=== PATIENT | female | born 1960 | race Caucasian/White ===

== ENCOUNTER 2018-02-26 09:39 | Emergency (ER) | payer BC ==
[2018-02-26] MEDS ORDERED: Sodium Chloride 0.9% 10 ML Syringe FLUSH PRN (10:26)
[2018-02-26] MEDS ORDERED: Ketorolac 30 MG/ML SDV IVPUSH ONE (10:28)
[2018-02-26] MEDS ORDERED: Ondansetron 4 MG/2 ML SDV IVPUSH ONE (10:28)
[2018-02-26] MEDS ORDERED: Lactated Ringers 1,000 ML IV SCH (10:30)
--- NOTE | 2018-02-26 10:30 | EDM.PDOC ---
ED HPI GENERAL MEDICAL PROBLEM - General Chief Complaint: Genitourinary Problem Stated Complaint: PAIN ON LEFT BACKSIDE- POSSIBLE KIDNEY STONE Time Seen by Provider: 02/26/18 10:23 Source of Information: Reports: Patient, Family, RN Notes Reviewed History Limitations: Reports: No Limitations - History of Present Illness INITIAL COMMENTS - FREE TEXT/NARRATIVE: 57-year-old female presents to the emergency department today complaint of left- sided flank pain, she states it came on suddenly this morning comes in waves is very intense relax does have nausea and vomiting no shortness of breath or chest pain has never had a kidney stone in the past no fevers Left Flank Pain Score (Numeric/FACES): 9 - Related Data Allergies Allergy/AdvReac Type Severity Reaction Status Date / Time erythromycin base Allergy Hives Verified 02/26/18 10:07 [From Erythrocin] Penicillins Allergy Hives Verified 02/26/18 10:07 Sulfa (Sulfonamide Allergy Hives Verified 02/26/18 10:07 Antibiotics) Home Meds: Home Meds Metoprolol Tartrate 12.5 mg PO DAILY 02/26/18 [History] Past Medical History Neurological History: Reports: Migraines Oncologic (Cancer) History: Reports: Malignant Melanoma Dermatologic History: Reports: Melanoma Social & Family History - Tobacco Use Smoking Status *Q: Never Smoker - Caffeine Use Caffeine Use: Reports: Coffee - Recreational Drug Use Recreational Drug Use: No ED ROS GENERAL - Review of Systems Review Of Systems: See Below Constitutional: Reports: No Symptoms HEENT: Reports: No Symptoms Respiratory: Reports: No Symptoms Cardiovascular: Reports: No Symptoms GI/Abdominal: Reports: Nausea, Vomiting : Reports: Flank Pain ED EXAM, RENAL/ - Physical Exam Exam: See Below Exam Limited By: No Limitations General Appearance: Alert, Mild Distress Eye Exam: Bilateral Eye: Normal Inspection Head: Atraumatic, Normocephalic Neck: Normal Inspection, Supple, Non-Tender, Full Range of Motion Respiratory/Chest: No Respiratory Distress, Lungs Clear, Normal Breath Sounds, No Accessory Muscle Use Cardiovascular: Regular Rate, Rhythm, No Murmur GI/Abdominal: Soft, Non-Tender Back Exam: Normal Inspection, Full Range of Motion, CVA Tenderness (L). No: CVA Tenderness (R) Course - Vital Signs Last Recorded V/S: Last Vital Signs Temp 95.4 F 02/26/18 09:54 Pulse 61 02/26/18 09:54 Resp 20 02/26/18 09:54 BP 167/101 H 02/26/18 09:54 Pulse Ox 100 02/26/18 09:54 - Orders/Labs/Meds Orders: Active Orders 24 hr Category Date Time Status Peripheral IV Care [RC] . DIRECTED Care 02/26/18 10:26 Active UA W/MICROSCOPIC [URIN] Urgent Lab 02/26/18 10:26 Ordered Lactated Ringers [Ringers, Lactated] 1,000 ml Med 02/26/18 10:30 Active IV ASDIRECTED Sodium Chloride 0.9% [Saline Flush] Med 02/26/18 10:26 Active 10 ml FLUSH ASDIRECTED PRN Peripheral IV Insertion Adult [OM.PC] Urgent Oth 02/26/18 10:26 Ordered Medication Orders Lactated Ringer's (Ringers, Lactated) 1,000 mls @ 999 mls/hr IV ASDIRECTED LEVI Last Admin: 02/26/18 10:46 Dose: 999 mls/hr Sodium Chloride (Saline Flush) 10 ml FLUSH ASDIRECTED PRN PRN Reason: Keep Vein Open Last Admin: 02/26/18 12:10 Dose: 10 ml Labs: Laboratory Tests 02/26/18 02/26/18 Range/Units 10:26 10:39 WBC 12.7 H (4.5-11.0) K/uL RBC 5.23 (3.30-5.50) M/uL Hgb 14.9 (12.0-15.0) g/dL Hct 45.6 (36.0-48.0) % MCV 87 (80-98) fL MCH 29 (27-31) pg MCHC 33 (32-36) % Plt Count 192 (150-400) K/uL Neut % (Auto) 80 H (36-66) % Lymph % (Auto) 14 L (24-44) % [place] % (Auto) 6 (2-6) % Eos % (Auto) 0 L (2-4) % Baso % (Auto) 0 (0-1) % Sodium (140-148) mmol/L Potassium (3.6-5.2) mmol/L Chloride (100-108) mmol/L Carbon Dioxide (21-32) mmol/L Anion Gap (5.0-14.0) mmol/L BUN (7-18) mg/dL Creatinine (0.6-1.0) mg/dL Est Cr Clr Drug Dosing mL/min Estimated GFR (MDRD) (>60) Glucose (74-106) mg/dL Calcium (8.5-10.1) mg/dL Meds: Medications Generic Name Dose Route Start Last Admin Trade Name Freq PRN Reason Stop Dose Admin Lactated Ringer's 1,000 mls @ 999 mls/hr 02/26/18 10:30 02/26/18 10:46 Ringers, Lactated IV 999 mls/hr ASDIRECTED LEVI Administration Sodium Chloride 10 ml 02/26/18 10:26 02/26/18 12:10 Saline Flush FLUSH 10 ml ASDIRECTED PRN Administration Keep Vein Open Discontinued Medications Generic Name Dose Route Start Last Admin Trade Name Freq PRN Reason Stop Dose Admin Fentanyl 50 mcg 02/26/18 12:00 02/26/18 12:11 Sublimaze IVPUSH 02/26/18 12:01 50 mcg ONETIME ONE Administration Ketorolac Tromethamine 30 mg 02/26/18 10:28 02/26/18 10:49 Toradol IVPUSH 02/26/18 10:29 30 mg ONETIME ONE Administration Ondansetron HCl 4 mg 02/26/18 10:28 02/26/18 10:48 Zofran IVPUSH 02/26/18 10:29 4 mg ONETIME ONE Administration Prochlorperazine Edisylate 5 mg 02/26/18 12:00 02/26/18 12:10 Compazine IVPUSH 02/26/18 12:01 5 mg ONETIME ONE Administration Departure - Departure Time of Disposition: 12:59 Disposition: Home, Self-Care 01 Condition: Good Clinical Impression: Kidney stone - Discharge Information Referrals: PCP,None [Primary Care Provider] - Forms: ED Department Discharge Additional Instructions: use hydrocodone as needed for pain control, use Zofran as needed for nausea and vomiting symptoms use the Flomax to help facilitate passage of the stone, please follow-up with urology upon return home, call return to the emergency department worsening of symptoms - My Orders Last 24 Hours: My Active Orders 02/26/18 10:26 Peripheral IV Care [RC] . DIRECTED UA W/MICROSCOPIC [URIN] Urgent Sodium Chloride 0.9% [Saline Flush] 10 ml FLUSH ASDIRECTED PRN Peripheral IV Insertion Adult [OM.PC] Urgent 02/26/18 10:30 Lactated Ringers [Ringers, Lactated] 1,000 ml IV ASDIRECTED - Assessment/Plan Last 24 Hours: My Active Orders 02/26/18 10:26 Peripheral IV Care [RC] . DIRECTED UA W/MICROSCOPIC [URIN] Urgent Sodium Chloride 0.9% [Saline Flush] 10 ml FLUSH ASDIRECTED PRN Peripheral IV Insertion Adult [OM.PC] Urgent 02/26/18 10:30 Lactated Ringers [Ringers, Lactated] 1,000 ml IV ASDIRECTED Plan: Assessment Acuity = acute Site and laterality = left-sided 6 x 3 mm stone at the UPJ Etiology = unknown etiology Manifestations = nausea, flank pain Location of injury = Home Lab values = CBC, CMP unremarkable, CT scan described stone above Plan Discussed options with her and the variability the stone passing she elected to try watchful waiting and will return home on Friday. Hydrocodone 5/325 one tablet by mouth 3 times a day when necessary total #20 provided for pain control , Zofran 4 mg ODT 1 tab by mouth 3 times a day when necessary total #10, prescription written for Flomax 0.4 mg 1 tablet daily total #20. She will follow -up with urology upon return home This note was dictated using [employer] voice recognition software please call with any questions on syntax or grammar.
--- NOTE | 2018-02-26 11:35 | CT ---
Abdomen Pelvis wo Cont CLINICAL HISTORY: Left flank pain COMPARISON: None. TECHNIQUE: Axial tomographic images are obtained from the dome of the diaphragm to the pubic symphysi s without IV contrast enhancement. No oral contrast was used. Auto dosage reduction and iterative rec onstruction techniques employed. FINDINGS: The left kidney is hydronephrotic. The there is a 3 x 6 mm calculus in the proximal left ur eter just below the UPJ. The mid to distal ureter has a normal course and contour. Bladder has normal appearance. The lung bases are clear. The liver shows no mass or biliary dilatation. The gallbladder is unremarka ble. The spleen has a normal size and shape. There is a small splenule. The pancreas shows no mass or inflammatory change. The adrenal glands appear normal bilaterally. The aorta has a normal course and contour. There is no suspicious retroperitoneal adenopathy. Abdominal pelvic fat planes are well dem arcated IMPRESSION: 3 x 6 mm obstructing calculus in the proximal left ureter with left hydronephrosis
[2018-02-26] MEDS ORDERED: fentaNYL 100 MCG/2 ML SDV IVPUSH ONE ×2 (12:00→13:08)
[2018-02-26] MEDS ORDERED: Prochlorperazine 10 MG/2 ML SDV IVPUSH ONE (12:00)
== END 2018-02-26 13:34 | disposition home or self-care (01) ==
LOC: JP.ED 09:39
DX: N13.2 Hydronephrosis with renal and ureteral calculous obstruction (principal); Z88.1 Allergy status to other antibiotic agents; Z88.0 Allergy status to penicillin; Z88.2 Allergy status to sulfonamides; Z79.899 Other long term (current) drug therapy
CPT/HCPCS: 36415; 74176; 80048; 85025; 96361; 96372; 96374; 96375; 96376; 99284; J0780; J1885; J2405; J3010; J7050; J7120

== ENCOUNTER 2018-02-27 09:27 | Emergency (ER) | payer BC ==
[2018-02-27] MEDS ORDERED: Sodium Chloride 0.9% 1,000 ML IV SCH ×2 (10:00→10:30)
--- NOTE | 2018-02-27 10:07 | EDM.PDOC ---
ED HPI GENERAL MEDICAL PROBLEM - General Chief Complaint: Genitourinary Problem Stated Complaint: POSSIBLE KIDNEY STONE Time Seen by Provider: 02/27/18 10:07 Source of Information: Reports: Patient History Limitations: Reports: No Limitations - History of Present Illness INITIAL COMMENTS - FREE TEXT/NARRATIVE: pt was seen yesterday and was found to have a 6mm stone high in the left ureter. She has not had alot of pain since discharge until early this am. She Had marked shaking chills early this am. She was found to have a obstructing stone on the left . She has left hydroneprous. Onset: Today, Other ( shaking chills started early this am. ) Duration: Hour(s): Location: Reports: Abdomen Associated Symptoms: Reports: Diaphoresis, Fever/Chills Left Abdominal Pain Score (Numeric/FACES): 5 - Related Data Allergies Allergy/AdvReac Type Severity Reaction Status Date / Time erythromycin base Allergy Hives Verified 02/27/18 09:49 [From Erythrocin] Penicillins Allergy Hives Verified 02/27/18 09:49 Sulfa (Sulfonamide Allergy Hives Verified 02/27/18 09:49 Antibiotics) Home Meds: Home Meds Metoprolol Tartrate 12.5 mg PO DAILY 02/26/18 [History] Acetaminophen/HYDROcodone [Pana 325-5 MG] 1 tab PO Q4HR 02/27/18 [History] Tamsulosin [Flomax] 1 tab PO DAILY 02/27/18 [History] Past Medical History Neurological History: Reports: Migraines Oncologic (Cancer) History: Reports: Malignant Melanoma Dermatologic History: Reports: Melanoma Social & Family History - Tobacco Use Smoking Status *Q: Never Smoker - Caffeine Use Caffeine Use: Reports: Coffee - Recreational Drug Use Recreational Drug Use: No ED ROS GENERAL - Review of Systems Review Of Systems: See Below Constitutional: Reports: Fever, Chills, Malaise HEENT: Reports: No Symptoms Respiratory: Reports: No Symptoms Cardiovascular: Reports: No Symptoms Endocrine: Reports: No Symptoms GI/Abdominal: Reports: No Symptoms : Reports: Flank Pain Musculoskeletal: Reports: No Symptoms Skin: Reports: No Symptoms ED EXAM, GI/ABD - Physical Exam Exam: See Below Text/Narrative:: t arrived with a history of shaking chills. She has a known obstructing stone in the left ureter. She has definite hydronephous. p Exam Limited By: No Limitations General Appearance: Alert, Mild Distress Ears: Normal TMs Nose: Normal Inspection Throat/Mouth: Normal Inspection Head: Atraumatic Neck: Normal Inspection Respiratory/Chest: No Respiratory Distress Cardiovascular: Regular Rate, Rhythm GI/Abdominal Exam: Other (left flank pain) Rectal (Female) Exam: Deferred Back Exam: CVA Tenderness (L) Extremities: Normal Inspection Neurological: Alert, Oriented, Normal Cognition Psychiatric: Normal Affect Course - Vital Signs Last Recorded V/S: Last Vital Signs Temp 37.9 C 02/27/18 10:41 Pulse 102 H 02/27/18 10:41 Resp 14 02/27/18 10:41 BP 117/71 02/27/18 10:41 Pulse Ox 96 02/27/18 10:41 - Orders/Labs/Meds Orders: Active Orders 24 hr Category Date Time Status CULTURE BLOOD [BC] Urgent Lab 02/27/18 10:20 Received CULTURE BLOOD [BC] Urgent Lab 02/27/18 10:25 Received CULTURE URINE [RM] Stat Lab 02/27/18 10:23 Received UA W/MICROSCOPIC [URIN] Urgent Lab 02/27/18 10:06 Ordered Levofloxacin/Dextrose 5%-Water [Levaquin in D5W 500 MG/ Med 02/27/18 10:28 Active 100 ML] 500 mg Premix Bag 1 bag IV ONETIME Sodium Chloride 0.9% [Normal Saline] 1,000 ml Med 02/27/18 10:00 Active IV ASDIRECTED Sodium Chloride 0.9% [Normal Saline] 1,000 ml Med 02/27/18 10:30 Active IV ASDIRECTED Blood Culture x2 Reflex Set [OM.PC] Urgent Oth 02/27/18 10:06 Ordered Medication Orders Sodium Chloride (Normal Saline) 1,000 mls @ 999 mls/hr IV ASDIRECTED LEVI Last Admin: 02/27/18 10:08 Dose: 999 mls/hr Sodium Chloride (Normal Saline) 1,000 mls @ 999 mls/hr IV ASDIRECTED LEVI Levofloxacin/Dextrose 500 mg/ (Premix) 100 mls @ 100 mls/hr IV ONETIME ONE Stop: 02/27/18 11:27 Last Admin: 02/27/18 10:38 Dose: 100 mls/hr Labs: Laboratory Tests 02/27/18 02/27/1818 Range/Units 10:06 10:06 10:06 WBC 5.7 (4.5-11.0) K/uL RBC 4.63 (3.30-5.50) M/uL Hgb 13.0 (12.0-15.0) g/dL Hct 40.2 (36.0-48.0) % MCV 87 (80-98) fL MCH 28 (27-31) pg MCHC 32 (32-36) % Plt Count 119 L (150-400) K/uL Neut % (Auto) 95 H (36-66) % Lymph % (Auto) 4 L (24-44) % [place] % (Auto) 1 L (2-6) % Eos % (Auto) 0 L (2-4) % Baso % (Auto) 0 (0-1) % Sodium 132 L (140-148) mmol/L Potassium 3.7 (3.6-5.2) mmol/L Chloride 101 (100-108) mmol/L Carbon Dioxide 22 (21-32) mmol/L Anion Gap 12.7 (5.0-14.0) mmol/L BUN 34 H (7-18) mg/dL Creatinine 1.5 H (0.6-1.0) mg/dL Est Cr Clr Drug Dosing 36.34 mL/min Estimated GFR (MDRD) 36 L (>60) Glucose 138 H (74-106) mg/dL Lactic Acid (0.4-2.0) mmol/L Calcium 7.9 L (8.5-10.1) mg/dL Total Bilirubin 1.0 (0.2-1.0) mg/dL AST 18 (15-37) U/L ALT 20 (12-78) U/L Alkaline Phosphatase 72 (46-116) U/L Total Protein 6.6 (6.4-8.2) g/dL Albumin 3.0 L (3.4-5.0) g/dL Globulin 3.6 H (2.3-3.5) g/dL Albumin/Globulin Ratio 0.8 L (1.2-2.2) Urine Color [place] Urine Appearance Cloudy Urine pH 5.0 (4.5-8.0) Ur Specific [place] 1.025 (1.008-1.030) Urine Protein Trace (NEGATIVE) mg/dL Urine Glucose (UA) Normal (NEGATIVE) mg/dL Urine Ketones Negative (NEGATIVE) mg/dL Urine Occult Blood Large (NEGATIVE) Urine Nitrite Positive H (NEGATIVE) Urine Bilirubin Small (NEGATIVE) Urine Urobilinogen Normal (NORMAL) mg/dL Ur Leukocyte Esterase Large (NEGATIVE) Urine RBC 20-30 H (0-5) Urine WBC 20-30 H (0-5) Ur Epithelial Cells Few Amorphous Sediment Few Urine Bacteria Many Urine Mucus Not seen 02/27/18 Range/Units 10:06 WBC (4.5-11.0) K/uL RBC (3.30-5.50) M/uL Hgb (12.0-15.0) g/dL Hct (36.0-48.0) % MCV (80-98) fL MCH (27-31) pg MCHC (32-36) % Plt Count (150-400) K/uL Neut % (Auto) (36-66) % Lymph % (Auto) (24-44) % [place] % (Auto) (2-6) % Eos % (Auto) (2-4) % Baso % (Auto) (0-1) % Sodium (140-148) mmol/L Potassium (3.6-5.2) mmol/L Chloride (100-108) mmol/L Carbon Dioxide (21-32) mmol/L Anion Gap (5.0-14.0) mmol/L BUN (7-18) mg/dL Creatinine (0.6-1.0) mg/dL Est Cr Clr Drug Dosing mL/min Estimated GFR (MDRD) (>60) Glucose (74-106) mg/dL Lactic Acid 2.8 H (0.4-2.0) mmol/L Calcium (8.5-10.1) mg/dL Total Bilirubin (0.2-1.0) mg/dL AST (15-37) U/L ALT (12-78) U/L Alkaline Phosphatase (46-116) U/L Total Protein (6.4-8.2) g/dL Albumin (3.4-5.0) g/dL Globulin (2.3-3.5) g/dL Albumin/Globulin Ratio (1.2-2.2) Urine Color Urine Appearance Urine pH (4.5-8.0) Ur Specific [place] (1.008-1.030) Urine Protein (NEGATIVE) mg/dL Urine Glucose (UA) (NEGATIVE) mg/dL Urine Ketones (NEGATIVE) mg/dL Urine Occult Blood (NEGATIVE) Urine Nitrite (NEGATIVE) Urine Bilirubin (NEGATIVE) Urine Urobilinogen (NORMAL) mg/dL Ur Leukocyte Esterase (NEGATIVE) Urine RBC (0-5) Urine WBC (0-5) Ur Epithelial Cells Amorphous Sediment Urine Bacteria Urine Mucus Meds: Medications Generic Name Dose Route Start Last Admin Trade Name Freq PRN Reason Stop Dose Admin Sodium Chloride 1,000 mls @ 999 mls/hr 02/27/18 10:00 02/27/18 10:08 Normal Saline IV 999 mls/hr ASDIRECTED LEVI Administration Sodium Chloride 1,000 mls @ 999 mls/hr 02/27/18 10:30 Normal Saline IV ASDIRECTED LEVI Levofloxacin/Dextrose 500 mg/ 100 mls @ 100 mls/hr 02/27/18 10:28 02/27/18 10 :38 Premix IV 02/27/18 11:27 100 mls/hr ONETIME ONE Administration Discontinued Medications Generic Name Dose Route Start Last Admin Trade Name Freq PRN Reason Stop Dose Admin Acetaminophen 650 mg 02/27/18 10:53 Tylenol PO 02/27/18 10:54 NOW ONE - Re-Assessments/Exams Free Text/Narrative Re-Assessment/Exam: 02/27/18 11:07 pt has a normal wbc, low platlets,. Her gfr is 36 and her creatnine is 1.5. Her urine is infected. Her lactic acid is elevated at 2.8 Departure - Departure Time of Disposition: 11:10 Disposition: DC/Tfer to Acute Hospital 02 Condition: Fair Clinical Impression: Sepsis, UTI (urinary tract infection), Left ureteral calculus - Discharge Information Referrals: PCP,None [Primary Care Provider] - Forms: ED Department Discharge Care Plan Goals: transfer to [facility]. - My Orders Last 24 Hours: My Active Orders 02/27/18 10:00 Sodium Chloride 0.9% [Normal Saline] 1,000 ml IV ASDIRECTED 02/27/18 10:06 UA W/MICROSCOPIC [URIN] Urgent Blood Culture x2 Reflex Set [OM.PC] Urgent 02/27/18 10:20 CULTURE BLOOD [BC] Urgent 02/27/18 10:23 CULTURE URINE [RM] Stat 02/27/18 10:25 CULTURE BLOOD [BC] Urgent 02/27/18 10:28 Levofloxacin/Dextrose 5%-Water [Levaquin in D5W 500 MG/100 ML] 500 mg Premix Bag 1 bag IV ONETIME 02/27/18 10:30 Sodium Chloride 0.9% [Normal Saline] 1,000 ml IV ASDIRECTED - Assessment/Plan Last 24 Hours: My Active Orders 02/27/18 10:00 Sodium Chloride 0.9% [Normal Saline] 1,000 ml IV ASDIRECTED 02/27/18 10:06 UA W/MICROSCOPIC [URIN] Urgent Blood Culture x2 Reflex Set [OM.PC] Urgent 02/27/18 10:20 CULTURE BLOOD [BC] Urgent 02/27/18 10:23 CULTURE URINE [RM] Stat 02/27/18 10:25 CULTURE BLOOD [BC] Urgent 02/27/18 10:28 Levofloxacin/Dextrose 5%-Water [Levaquin in D5W 500 MG/100 ML] 500 mg Premix Bag 1 bag IV ONETIME 02/27/18 10:30 Sodium Chloride 0.9% [Normal Saline] 1,000 ml IV ASDIRECTED
[2018-02-27] MEDS ORDERED: Levofloxacin/Dextrose 5%-Water 500 MG in Premix Bag 1 BAG IV ONE (10:28)
[2018-02-27] MEDS ORDERED: Acetaminophen 325 MG Tab PO ONE (10:53)
== END 2018-02-27 11:32 ==
LOC: JP.ED 09:27
DX: A41.9 Sepsis, unspecified organism (principal); N39.0 Urinary tract infection, site not specified; N20.1 Calculus of ureter; Z88.0 Allergy status to penicillin; Z88.1 Allergy status to other antibiotic agents; Z88.2 Allergy status to sulfonamides
CPT/HCPCS: 36415; 80053; 81001; 83605; 85025; 87040; 87086; 87088; 87186; 96365; 99284; A9270; J1956; J7030